=== PATIENT | female | born 1945 | race Caucasian/White ===

== ENCOUNTER → 2020-11-24 13:57 | Outpatient (CLI) | payer MEDICARE, SELFPAY ==
[2020-11-24 15:13] LABS: Erythrocyte Sedimentation Rate 3 mm/hr (0-30)
[2020-11-24 15:14] LABS: Absolute Neutrophil Count 3.8 X10^3/uL (2.0-7.7); Basophil# 0.06 X10^3/uL; Basophil% 1.1 % (0-1); Eosinophil# 0.09 X10^3/uL; Eosinophils% 1.7 % (0-5); Hematocrit 44.4 % (37-47); Hemoglobin 14.2 g/dL (12.0-15.0); Lymphocyte % 16.5 % (19-41); Mean Corpuscular Hgb 28.8 pg (27.0-32.0); Mean Corpuscular Volume 90.1 fL (81-99); Monocyte# 0.54 X10^3/uL; Monocyte% 9.9 % (0-10); NRBC Flagged by Analyzer 0 % (0-5); Neutrophil # 3.84 X10^3/uL (2.7-7.7); Neutrophil % 70.4 % (47-70); Platelet Count 319 K/mm3 (150-450); RBC Distribution Width CV 12.3 % (11.6-14.6); RBC Distribution Width SD 40.6 fl (35.1-43.9); Red Blood Count 4.93 M/mm3 (4.2-5.4); White Blood Count 5.5 K/mm3 (4.4-11.0)
[2020-11-24 15:50] LABS: ALB/GLOB Ratio 1.1 RATIO (0.9-2.4); AST(SGOT) 19 U/L (15-37); Alanine Aminotransfer ALT/SGPT 26 U/L (13-56); Albumin, Serum 3.8 g/dL (3.2-5.0); Alkaline Phosphatase 58 U/L (45-117); Anion Gap 6 (5-15); BUN 13 mg/dL (7-18); BUN/Creat Ratio 17.5 RATIO (10-20); CRP < 2.90 mg/L (0.0-3.0); Calcium,Total 9.3 mg/dL (8.5-10.1); Chloride 107 mmol/L (98-107); Creatinine, Serum 0.74 mg/dL (0.55-1.02); EST Glomerular Filtration Rate 81 mL/min (>60); Est Glom Filt Rate - Afr Amer 98 mL/min (>60); Globulin 3.6 g/dL (2.2-4.2); Glucose 89 mg/dL (74-106); Potassium 3.7 mmol/L (3.5-5.1); Protein, Total 7.4 g/dL (6.4-8.2); Rheumatoid Factor < 10.0 IU/mL (<15); Sodium Level 140 mmol/L (136-145)
[2020-11-25 10:07] LABS: Hepatitis B Surface Antibody Non-Reactive; Hepatitis B Surface Antigen Non-Reactive (Nonreactive); Hepatitis C Antibody Non-Reactive (Nonreactive)
[2020-11-26 14:09] LABS: SJOGREN'S Anti-SS-A test < 0.2 AI (0.0-0.9); SJOGREN'S Anti-SS-B test < 0.2 AI (0.0-0.9)
[2020-11-27 12:15] LABS: CCP IgG Antibodies 9 units (0-19)
[2020-11-27 13:51] LABS: ANTINUCLEAR ANTIBODIES DIRECT Negative (Negative)
== END ==
PROVIDERS: PCP Family Medicine; Referring Provider Internal Medicine Rheumatology; Visit Provider Internal Medicine Rheumatology
DX: M06.4 Inflammatory polyarthropathy (principal); M35.00 Sjogren syndrome, unspecified; M18.0 Bilateral primary osteoarthritis of first carpometacarpal joints; M47.892 Other spondylosis, cervical region; M81.0 Age-related osteoporosis without current pathological fracture; Z86.73 Personal history of transient ischemic attack (TIA), and cerebral infarction without residual deficits
CPT/HCPCS: 36415; 80053; 85025; 85652; 86038; 86140; 86200; 86235; 86431; 86706; 86803; 87340